=== PATIENT | male | born 1980 | race Caucasian/White ===

== ENCOUNTER 2023-12-29 07:17 | Emergency (ER) | payer MEDICAID ==
[~2023-12-29] VITALS: Ht 170.2 cm; Wt 74.8 kg
[2023-12-29 07:31] VITALS: O2SAT 99
[2023-12-29] MEDS: FAMOTIDINE 20MG TABLET PO ONE (08:00)
[2023-12-29 08:01] LABS: BASOPHILS % 0.9 % (0.0-2.0); HEMATOCRIT. 46.9 % (42.0-52.0); LYMPHOCYTES % 30.2 % (20.0-50.0); MEAN CORPUSCULAR HEMOGLOBIN 30.3 pg (28.0-32.0); MEAN PLATELET VOLUME 8.8 fl (7.4-10.4); MONOCYTES % 5.5 % (2.0-8.0); NEUTROPHILS % 62.4 % (40.0-76.0); PLATELET 200 x1000/uL (130-400); RED BLOOD CELL COUNT 5.27 mill/uL (4.7-6.1); RED CELL DISTRIBUTION WIDTH 13.7 % (11.6-14.6)
[2023-12-29] MEDS: ACETAMINOPHEN 325MG TABLET PO ONE (08:01)
[2023-12-29 08:08] LABS: CHLORIDE 104 mEq/L (98-107); POTASSIUM 3.8 mEq/L (3.5-5.1); SODIUM 138 mEq/L (136-145)
[2023-12-29 08:09] LABS: CARBON DIOXIDE 29 mEq/L (21-32)
[2023-12-29 08:14] LABS: CREATININE 0.7 mg/dL (0.6-1.3); GLUCOSE 113 mg/dL (70-105); UREA NITROGEN BLOOD 10 mg/dL (9-23)
[2023-12-29 08:16] LABS: ALANINE AMINOTRANSFERASE 54 IU/L (10-49); ALBUMIN 4.4 g/dL (3.2-4.8); ASPARTATE AMINOTRANSFERASE 71 IU/L (<34); BILIRUBIN TOTAL 1.4 mg/dL (0.1-1.0); PROTEIN TOTAL 7.2 g/dL (6.0-8.3)
[2023-12-29 09:12] VITALS: BP 133/71; PULSE 71; RESP 16; TEMP 98.2
== END 2023-12-29 09:32 | disposition home or self-care (01) ==
LOC: ER 07:17 → EDBD 07:17 → ER 09:32
DX: R10.13 Epigastric pain (principal); R07.89 Other chest pain; R79.89 Other specified abnormal findings of blood chemistry; Z90.49 Acquired absence of other specified parts of digestive tract
CPT/HCPCS: 36415; 71045; 76604; 80053; 85025; 93005; 93880; 99285